=== PATIENT | female | born 1950 | race Caucasian/White ===

== ENCOUNTER 2017-03-09 12:39 | Day surgery (SDC) | payer MEDICARE, BC ==
[~2017-03-09 12:39] MED LIST: Buffered Lidocaine 0.9% SYRIN* 5 ML/SYR SYRINGE INTRADERM ONE; ceFAZolin 2 GM in NS 0.9% 100 ml IVPB ONE
[2017-03-09] MEDS ORDERED: Lidocaine 1% INJ* 10 MG/ML 30 ML SDV ONE ×2 (15:33→17:58)
[2017-03-09] MEDS ORDERED: Midazolam* 1 MG/ML 5 ML VIAL (5 MG) ONE (17:34)
[2017-03-09] MEDS ORDERED: fentaNYL* 50 MCG/ML 2 ML VIAL (100 MCG VIAL) ONE (17:57)
[2017-03-09] MEDS ORDERED: Propofol* 10 MG/ML 20 ML BTL IV PUSH ONE (17:59)
[2017-03-09] MEDS ORDERED: Midazolam* 1 MG/ML 2 ML VIAL (2 MG) ONE (18:27)
[2017-03-09] MEDS ORDERED: Ondansetron INJ* 2 MG/ML VIAL IV PRN (18:31)
[2017-03-09] MEDS ORDERED: oxyCODONE/Acetamin 5/325 MG* TAB PO PRN ×2 (18:31→18:53)
[2017-03-09] MEDS ORDERED: DiMENhydriNATE IV* 50 MG/ML VIAL IV PUSH PRN (18:31)
[2017-03-09] MEDS ORDERED: HYDROmorphone* 1 MG/ML 1 ML SYR IV PRN (18:31)
[2017-03-09] MEDS ORDERED: fentaNYL* 50 MCG/ML 2 ML VIAL (100 MCG VIAL) IV PRN (18:31)
[2017-03-09] MEDS ORDERED: Ibuprofen TAB* 600 MG PO PRN (18:53)
--- NOTE | 2017-03-09 19:16 | RAD ---
INDICATION: Power port placement. COMPARISON: Comparison is made with a prior chest x-ray study from December 18, 2016. TECHNIQUE: 15 seconds of intermittent fluoroscopic guidance were provided and the spot films of the chest were obtained in the operating room. FINDINGS: The films demonstrate placement of a PowerPort central venous catheter entering on the left side. The catheter tip projects over the right atrium. IMPRESSION: INTRAOPERATIVE CONTROL FILMS. CPT II Codes: 6045F
[2017-03-09 19:45] VITALS: BP 153/74
--- NOTE | 2017-03-09 19:48 | RAD ---
INDICATION: Status post central line placement. COMPARISON: Comparison is made with prior chest x-ray study from March 20, 2017. TECHNIQUE: A portable view of the chest was obtained. FINDINGS: Cardiac and mediastinal contours appear to be within normal limits. There is a power port central venous catheter entering on the left side. The catheter tip projects over the region of the superior vena cava. The lungs are underinflated and clear. No pneumothorax or pleural effusion is seen. IMPRESSION: STATUS POST CENTRAL LINE PLACEMENT, NO EVIDENCE FOR ACUTE FINDING.
--- NOTE | 2017-03-11 03:06 | OP ---
CC: Servando Hernandez MD * DATE OF OPERATION: 03/09/17 - [facility] DATE OF : 46 SURGEON: Dr. Patterson. WINDING RACK OPERATOR: None. ANESTHESIOLOGIST: Wes Jacobson MD ANESTHESIA: Local MAC. PRE-OP DIAGNOSIS: Malignant neoplasm of vagina. POST-OP DIAGNOSIS: Malignant neoplasm of vagina. OPERATIVE PROCEDURE: Left internal jugular PowerPort placement. ESTIMATED BLOOD LOSS: Minimal. IV FLUIDS: Crystalloids. SPECIMENS: None. DRAINS: None. COMPLICATIONS: None. COUNTS: The instrument, needle, and sponge counts were correct. DESCRIPTION OF PROCEDURE: The patient was brought to the operating room and placed on the table supine. Sequential compression devices were placed on both lower extremities. Intravenous sedation was administered. She was prepped and draped in the usual sterile fashion and time-out was performed. Local anesthetic was infiltrated for a left subclavian approach. After cannulating the vein, the guidewire was not able to be passed, however. Ultimately, it was decided to proceed with a left internal jugular approach. Ultrasound was utilized to identify the left internal jugular vein and then local anesthetic infiltrated to the skin. The vein was cannulated without difficulty and the guidewire placed into the superior vena cava and its position confirmed under fluoroscopy. Additional anesthetic was then infiltrated for the subcutaneous pocket and for the subcutaneous tunnel. The pocket was created by incising the skin transversely with the scalpel and creating the pocket and subcutaneous tissues of the left upper chest with cautery. A counterincision was made at the guidewire site and then the catheter was back tunneled to the pocket using an 8-Telugu PowerPort catheter. The peel- away sheath and the dilator were advanced to the superior vena cava under fluoroscopic guidance and then the guidewire and dilator were removed and the catheter was advanced, placed in the tip at the cavo-atrial junction. The peel- away sheath was removed. The catheter was then cut to an appropriate length and connected to the PowerPort, which was positioned in the subcutaneous pocket. It was accessed. It santy and flushed easily. The port was secured with a single 2-0 Surgipro suture. The incisions were then closed with 3-0 Polysorb for the subcutaneous tissue and 4-0 Monocryl for the skin in subcuticular fashion. Steri-Strips were applied. The port was accessed with the PowerPort needle. It was drawn and flushed with heparinized saline. The site was dressed with Tegaderm dressings and the tubing from the needle was wrapped with 4x4 and taped. The patient tolerated the procedure well. She was awakened and transferred to the recovery room in stable condition. [id number]/[facility] #: [id number] BO
== END 2017-03-09 19:45 | disposition home or self-care (01) ==
LOC: OR 12:39
PROVIDERS: ATTEND Surgery
DX: C52 Malignant neoplasm of vagina (principal); E78.5 Hyperlipidemia, unspecified; I10 Essential (primary) hypertension; Z87.891 Personal history of nicotine dependence; Z88.5 Allergy status to narcotic agent
CPT/HCPCS: 71010; C1788; J0690; J1642; J2001; J2250; J2704; J3010

== ENCOUNTER 2017-03-18 14:33 | Inpatient (IN) | payer MEDICARE, BC ==
[2017-03-18] MEDS ORDERED: Lidocaine 2% JELLY* 6 ML JELLY TOPICAL PRN (16:11)
[2017-03-18] MEDS ORDERED: Prochlorperazine TAB* 10 MG PO PRN (16:23)
[2017-03-18] MEDS ORDERED: Ondansetron ODT TAB* 4 MG PO PRN (16:23)
[2017-03-18] MEDS ORDERED: Enoxaparin(*) 40 MG/0.4 ML SYR SUBCUT SCH (17:00)
[2017-03-18] MEDS: Acetaminophen TAB* 325 MG PO PRN (17:08)
[2017-03-18] MEDS: Atorvastatin* 10 MG TAB PO SCH (17:09)
[2017-03-18] MEDS: Cefepime(*) 2 GM in NS 0.9% 50 ML* 50 ML IVPB SCH (17:43)
[2017-03-18] MEDS: NS 0.9% 1000 ML* 1,000 ML IV SCH (17:43)
--- NOTE | 2017-03-18 18:23 | RAD ---
HISTORY: Fever COMPARISONS: March 09, 2017 VIEWS: 4: Frontal dual-energy and lateral views of the chest. FINDINGS: CARDIOMEDIASTINAL SILHOUETTE: The cardiomediastinal silhouette is normal. ALEXSANDER: The alexsander are normal. PLEURA: The costophrenic angles are sharp. No pleural abnormalities are noted. LUNG PARENCHYMA: The lungs are clear. ABDOMEN: The upper abdomen is clear. There is no subphrenic gas. BONES AND SOFT TISSUES: No bone or soft tissue abnormalities are noted. OTHER: A left-sided chest port is noted with the tip overlying the cavoatrial junction. IMPRESSION: NO ACTIVE CARDIOPULMONARY DISEASE.
[2017-03-18 20:26] LABS: Urine Bacteria Absent (Absent); Urine Bilirubin Negative (Negative); Urine Glucose Negative (Negative); Urine Nitrite Negative (Negative)
[2017-03-19] MEDS: Cefepime(*) 2 GM in NS 0.9% 50 ML* 50 ML IVPB SCH ×3 (02:38→16:44)
[2017-03-19] MEDS: Acetaminophen TAB* 325 MG PO PRN ×2 (02:45→22:50)
[2017-03-19] MEDS: NS 0.9% 1000 ML* 1,000 ML IV SCH ×2 (02:46→14:14)
[2017-03-19 06:11] LABS: Hematocrit 24 % (35-47); Mean Corpuscular Hemoglobin 28 pg (27-31); Mean Corpuscular Volume 83 fL (80-97); Red Blood Count 2.86 10^6/ul (4.0-5.4); White Blood Count 0.6 10^3/ul (3.5-10.8)
[2017-03-19 06:14] LABS: Add Diff/Slide Review? Slide Review Added; Comments Flag Yes; Mean Corpuscular HGB Conc 34 g/dl (31-36); Mean Platelet Volume 10 um3 (7.4-10.4); Red Cell Distribution Width 14 % (10.5-15)
[2017-03-19 06:16] LABS: Albumin 2.9 g/dL (3.2-5.2); BUN/Creatinine Ratio 17.7 (8-20); Calcium 8.2 mg/dL (8.6-10.3); EGFR African American 122.7 (>60); EGFR Non-African American 95.4 (>60); Globulin 1.9 g/dL (2-4); Potassium 3.5 mmol/L (3.5-5.0); Total Bilirubin 0.4 mg/dL (0.2-1.0); Total Protein 4.8 g/dL (6.4-8.9)
[2017-03-19] MEDS: Docusate CAP* 100 MG PO SCH (08:50)
[2017-03-19] MEDS: BIOTIN 1 MG PO SCH (08:56)
--- NOTE | 2017-03-19 09:12 | PN ---
Progress Note - Progress Note Date of Service: 03/19/17 SOAP: Subjective: []Admitted yesterday for neutropenic fever, was Cycle 1 Day 9 of Doxorubicin and Olaratumab (15mg/kg) - tx. for high grade uterine sarcoma. To note she received Neulasta D2 (via On-pro) and D8 was held d/t neutropenia. Feeling better then yesterday. Only complaint r/t vulvar ulcer, "but its a little less stingy actually." Some drainage, "I think it smells." ROS otherwise benign. Medications: Acetaminophen (Tylenol Tab*) 650 mg PO Q6H PRN PRN Reason: fever or pain Last Admin: 03/19/17 02:45 Dose: 650 mg Atorvastatin Calcium (Lipitor*) 5 mg PO 1700 [facility] PRN Reason: Protocol Last Admin: 03/18/17 17:09 Dose: 5 mg Docusate Sodium (Colace Cap*) 100 mg PO DAILY [facility] Last Admin: 03/19/17 08:50 Dose: 100 mg Enoxaparin Sodium (Lovenox(*)) 40 mg SUBCUT Q24H [facility] Last Admin: 03/18/17 17:09 Dose: Not Given Heparin Sodium (Porcine) (Heparin Flush Port (Ivad)) 5 ml FLUSH DAILY [facility] PRN Reason: Protocol Last Admin: 03/19/17 08:56 Dose: Not Given Cefepime HCl 2 gm/ Sodium (Chloride) 50 mls @ 100 mls/hr IVPB Q8H [facility] Last Admin: 03/19/17 08:50 Dose: 100 mls/hr Sodium Chloride (Ns 0.9% 1000 Ml*) 1,000 mls @ 100 mls/hr IV PER RATE [facility] Last Admin: 03/19/17 02:46 Dose: 100 mls/hr Lidocaine HCl (Lidocaine 2% Jelly*) 1 applic TOPICAL TID PRN PRN Reason: PAIN Non-Formulary Medication (Biotin [Biotin]) 1 mg PO QAM [facility] Last Admin: 03/19/17 08:56 Dose: Not Given Ondansetron HCl (Zofran Odt Tab*) 4 mg PO Q6H PRN PRN Reason: NAUSEA Prochlorperazine (Compazine Tab*) 10 mg PO Q6H PRN PRN Reason: NAUSEA Objective: [] Vital Signs Temp Pulse Resp BP Pulse Ox 98.0 F 68 21 114/42 99 03/19/17 07:59 03/19/17 07:59 03/19/17 07:59 03/19/17 07:59 03/19/17 07:59 A&Ox3, EOMI, SAUCEDA, amb. with steady gait, CN II-XII intact, strenth = bilat. HRR, S1S2 without murmurs LS clear bilat. Port LCW benign +BS, abd. soft and non-tender Vulva with ulceration midline bilat L>R, sm. amt. of erythema and serous exudate Vaginal canal with left wall tumor visualized without full exam, faint foul smell +PP=bilat., no edema noted Laboratory Results - last 24 hr 03/18/17 03/19/17 03/19/17 19:35 05:30 05:50 WBC 0.6 L RBC 2.86 L Hgb 8.0 L Hct 24 L MCV 83 MCH 28 MCHC 34 RDW 14 Plt Count 55 L D MPV 10 Neut % (Auto) 7.6 L Lymph % (Auto) 79.7 H Barry % (Auto) 4.4 Eos % (Auto) 7.3 H Baso % (Auto) 1.0 Absolute Neuts (auto) 0 L Absolute Lymphs (auto) 0.5 L Absolute Monos (auto) 0 Absolute Eos (auto) 0 Absolute Basos (auto) 0 Absolute Nucleated RBC 0 Nucleated RBC % 0.6 Sodium 137 Potassium 3.5 Chloride 108 Carbon Dioxide 26 Anion Gap 3 BUN 11 Creatinine 0.62 Est GFR ( Amer) 122.7 Est GFR (Non-Af Amer) 95.4 BUN/Creatinine Ratio 17.7 Glucose 96 Calcium 8.2 L Total Bilirubin 0.40 AST 16 ALT 18 Alkaline Phosphatase 54 Total Protein 4.8 L Albumin 2.9 L Globulin 1.9 L Albumin/Globulin Ratio 1.5 Urine Color Straw Urine Appearance Clear Urine pH 6.0 Ur Specific [place] 1.003 L Urine Protein Negative Urine Ketones Negative Urine Blood 2+ H Urine Nitrate Negative Urine Bilirubin Negative Urine Urobilinogen Negative Ur Leukocyte Esterase Negative Urine WBC (Auto) Trace(0-5/hpf) Urine RBC (Auto) Trace(0-2/hpf) Ur Squamous Epith Cells Present H Urine Bacteria Absent Urine Glucose Negative Assessment: []67 yo female recently diagnosed with aggressive uterine sarcoma now receiving combination evy-adjuvant Doxorubicin (75 mg/m2)/Olaratumab (15mg/kg) D1D8 q21 admitted with neutropenic fever found to be septic with 3/4 blood cultures positive for gram neg bacilli (see acct. [id number]). Stable to improving since first dose of abx (approx. 15 hrs ago), coverage with Cefepime appropriate at this time. Plan: []1. Sepsis: present on admission, cont. Cefepime until sensitivity available. Possible sources include vulvar ulcer, vaginal tumor, port (though does not appear infected). 2. Pancytopenia: expected with tx., may require dose adjustments but will depend on length of recovery. Cont. reverse isolation. D/C Lovenox, enc. ambulation and SCDs. 3. Vulvar ulcers: try MMW topically QID 4. HTN: anti-hypertensives on hold d/t sepsis, monitor while inpt. and may need adjustment (combination diuretic may not be appropriate with chemo) Disposition: Inpatient for IV abx.
[2017-03-19] MEDS: Miracle MW-Ben/Nyst/Tetrac TOPICAL SCH ×3 (14:15→22:50)
[2017-03-19] MEDS: Atorvastatin* 10 MG TAB PO SCH (16:44)
[2017-03-20] MEDS: Cefepime(*) 2 GM in NS 0.9% 50 ML* 50 ML IVPB SCH (02:34)
[2017-03-20 06:31] LABS: Hematocrit 24 % (35-47); White Blood Count 0.9 10^3/ul (3.5-10.8)
[2017-03-20 06:37] LABS: Add Diff/Slide Review? Slide Review Added; Comments Flag Yes; Hemoglobin 8.3 g/dl (12.0-16.0); Mean Corpuscular HGB Conc 35 g/dl (31-36); Mean Corpuscular Hemoglobin 29 pg (27-31); Mean Corpuscular Volume 83 fL (80-97); Mean Platelet Volume 10 um3 (7.4-10.4); Red Blood Count 2.85 10^6/ul (4.0-5.4); Red Cell Distribution Width 14 % (10.5-15)
[2017-03-20 06:42] LABS: Albumin 2.7 g/dL (3.2-5.2); BUN/Creatinine Ratio 14.3 (8-20); Calcium 8.3 mg/dL (8.6-10.3); EGFR African American 120.5 (>60); EGFR Non-African American 93.7 (>60); Globulin 2.3 g/dL (2-4); Potassium 3.5 mmol/L (3.5-5.0); Total Bilirubin 0.3 mg/dL (0.2-1.0)
[2017-03-20] MEDS ORDERED: Iohexol 350* (CONTRAST) 500 ML MDV IV ONE (08:51)
--- NOTE | 2017-03-20 08:58 | PN ---
Progress Note - Progress Note Date of Service: 03/20/17 SOAP: Subjective: reports a sense of left sided chest heaviness (like I just cant breathe right) starting this am, with a pain in posteriorly to the left when she breathes. no diaphoresis. no cardiac history that she knows of. Objective: Vital Signs Temp Pulse Resp BP Pulse Ox 98.2 F 74 16 105/44 96 03/20/17 02:47 03/20/17 02:47 03/20/17 02:47 03/20/17 02:47 03/20/17 02:47 perr eomi op dry cta bl s1 s2 nl soft nt +Bs no le edema vulva denuded without obvious ulceration, +visible necrotic appearing tumor no le edema A+Ox 3, nonfocal neurological exam port clean, left sided Laboratory Results - last 24 hr 03/19/17 03/19/17 03/20/17 05:50 14:20 05:50 WBC 0.9 L RBC 2.85 L Hgb 8.3 L Hct 24 L MCV 83 MCH 29 MCHC 35 RDW 14 Plt Count 47 L MPV 10 Neut % (Auto) 28.2 L Lymph % (Auto) 61.1 H Ralls % (Auto) 6.3 Eos % (Auto) 3.7 Baso % (Auto) 0.7 Absolute Neuts (auto) 0.3 L Absolute Lymphs (auto) 0.6 L Absolute Monos (auto) 0.1 Absolute Eos (auto) 0 Absolute Basos (auto) 0 Absolute Nucleated RBC 0.01 Nucleated RBC % 0.6 Hem Pathologist Commnt Sodium Potassium Chloride Carbon Dioxide Anion Gap BUN Creatinine Est GFR ( Amer) Est GFR (Non-Af Amer) BUN/Creatinine Ratio Glucose Calcium Total Bilirubin AST ALT Alkaline Phosphatase Total Protein Albumin Globulin Albumin/Globulin Ratio Vitamin B12 > 1450 H 03/20/17 05:50 WBC RBC Hgb Hct MCV MCH MCHC RDW Plt Count MPV Neut % (Auto) Lymph % (Auto) Ralls % (Auto) Eos % (Auto) Baso % (Auto) Absolute Neuts (auto) Absolute Lymphs (auto) Absolute Monos (auto) Absolute Eos (auto) Absolute Basos (auto) Absolute Nucleated RBC Nucleated RBC % Hem Pathologist Commnt Sodium 137 Potassium 3.5 Chloride 108 Carbon Dioxide 26 Anion Gap 3 BUN 9 Creatinine 0.63 Est GFR ( Amer) 120.5 Est GFR (Non-Af Amer) 93.7 BUN/Creatinine Ratio 14.3 Glucose 84 Calcium 8.3 L Total Bilirubin 0.30 AST 14 ALT 18 Alkaline Phosphatase 57 Total Protein 5.0 L Albumin 2.7 L Globulin 2.3 Albumin/Globulin Ratio 1.2 Vitamin B12 Acetaminophen (Tylenol Tab*) 650 mg PO Q6H PRN PRN Reason: fever or pain Last Admin: 03/19/17 22:50 Dose: 650 mg Atorvastatin Calcium (Lipitor*) 5 mg PO 1700 [facility] PRN Reason: Protocol Last Admin: 03/19/17 16:44 Dose: 5 mg Docusate Sodium (Colace Cap*) 100 mg PO DAILY [facility] Last Admin: 03/19/17 08:50 Dose: 100 mg Heparin Sodium (Porcine) (Heparin Flush Port (Ivad)) 5 ml FLUSH DAILY [facility] PRN Reason: Protocol Last Admin: 03/19/17 08:56 Dose: Not Given Cefepime HCl 2 gm/ Sodium (Chloride) 50 mls @ 100 mls/hr IVPB Q8H [facility] Last Admin: 03/20/17 02:34 Dose: 100 mls/hr Sodium Chloride (Ns 0.9% 1000 Ml*) 1,000 mls @ 50 mls/hr IV PER RATE [facility] Last Admin: 03/19/17 14:14 Dose: 50 mls/hr Iohexol (Omnipaque 350 (Contrast)-) 71 ml IV ONCE ONE Stop: 03/20/17 08:52 Lidocaine HCl (Lidocaine 2% Jelly*) 1 applic TOPICAL TID PRN PRN Reason: PAIN Last Admin: 03/19/17 14:16 Dose: 1 applic Multi-Ingredient Mouthwash/Gargle (Miracle Mw-Franco/Nyst/Tetrac*) 5 ml TOPICAL QID [facility] Last Admin: 03/19/17 22:50 Dose: 5 ml Non-Formulary Medication (Biotin [Biotin]) 1 mg PO QAM [facility] Last Admin: 03/19/17 08:56 Dose: Not Given Ondansetron HCl (Zofran Odt Tab*) 4 mg PO Q6H PRN PRN Reason: NAUSEA Potassium Chloride (Klor Con Er Tab*) 40 meq PO DAILY [facility] Stop: 03/25/17 08:59 Prochlorperazine (Compazine Tab*) 10 mg PO Q6H PRN PRN Reason: NAUSEA Assessment: 67 yo F w a high grade uterine sarcoma sp cycle 1 of doxorubicin/olaratumab day 1 03/08 (did receive neulasta) complicated by neutropenic fevers and e coli sepsis. afebrile now on appropriate antibiotics. This am concerningly she has chest pressure and vague pleuritic chest pain. I would like to rule out a cardiac event as well as a PE. -CTA stat -ekg and trops -move to telemetry -if positive will get cardiology consult as appropriate. will hold off on ASA right now as thrombocytopenic vulvar ulceration: appears to be more like mucositis to me but I did swab for herpes cont topical magic mouthwash for pain relief e coli sepsis: clinically improving pansensitive, will change to ceftriaxone
[2017-03-20] MEDS: Potassium Chlor TAB* 20 MEQ TAB.ER PO SCH (10:04)
[2017-03-20] MEDS: Docusate CAP* 100 MG PO SCH (10:04)
[2017-03-20] MEDS ORDERED: Alteplase (CATHFLO)* 2 MG VIAL IV ONE ×2 (12:00→13:19)
[2017-03-20] MEDS: Miracle MW-Ben/Nyst/Tetrac TOPICAL SCH ×3 (13:23→20:42)
[2017-03-20] MEDS: BIOTIN 1 MG PO SCH (13:24)
[2017-03-20] MEDS: Atorvastatin* 10 MG TAB PO SCH (16:33)
[2017-03-20] MEDS: NS 0.9% 1000 ML* 1,000 ML IV SCH (16:34)
--- NOTE | 2017-03-20 20:31 | RAD ---
HISTORY: Pleuritic chest pain, shortness of breath COMPARISONS: None TECHNIQUE: Multiple contiguous axial CT scans of the chest were obtained after the administration of nonionic intravenous contrast, timed to the pulmonary arterial phase of contrast enhancement.. Coronal and sagittal multiplanar reformations are also submitted for review. FINDINGS: NECK AND THYROID: The lower neck and thyroid are unremarkable. CHEST WALL: There is no lower cervical, axillary, or supraclavicular lymphadenopathy by size criteria. A left-sided pacemaker is noted. HEART AND PERICARDIUM: The heart is unremarkable. AORTA AND PULMONARY VASCULATURE: There is no pulmonary arterial filling defect to suggest pulmonary embolism. There is no linear filling defect within the aorta to suggest aortic dissection. MEDIASTINUM: There is no mediastinal lymphadenopathy by size criteria. ALEXSANDER: There is no hilar lymphadenopathy by size criteria. AIRWAY AND ESOPHAGUS: The airway is unremarkable, without endobronchial filling defect. The esophagus is grossly normal. LUNG PARENCHYMA: The lungs are clear. PLEURA: There are small bilateral pleural effusions. UPPER ABDOMEN: The upper abdomen is unremarkable. BONES AND SOFT TISSUES: No bone or soft tissue abnormalities are noted. OTHER: None. IMPRESSION: 1. NO PULMONARY ARTERIAL FILLING DEFECT TO SUGGEST PULMONARY EMBOLISM. 2. SMALL BILATERAL PLEURAL EFFUSIONS.
[2017-03-21 05:33] LABS: Hematocrit 24 % (35-47); Mean Corpuscular HGB Conc 34 g/dl (31-36); Mean Corpuscular Hemoglobin 28 pg (27-31); Mean Corpuscular Volume 83 fL (80-97); Mean Platelet Volume 10 um3 (7.4-10.4); Red Blood Count 2.87 10^6/ul (4.0-5.4); Red Cell Distribution Width 14 % (10.5-15)
[2017-03-21 05:34] LABS: Comments Flag Yes
[2017-03-21 05:35] LABS: Add Diff/Slide Review? Slide Review Added; White Blood Count 1.8 10^3/ul (3.5-10.8)
[2017-03-21 05:47] LABS: Albumin 3.1 g/dL (3.2-5.2); BUN/Creatinine Ratio 9.8 (8-20); Calcium 8.4 mg/dL (8.6-10.3); EGFR African American 125.1 (>60); EGFR Non-African American 97.2 (>60); Globulin 1.9 g/dL (2-4); Potassium 3.6 mmol/L (3.5-5.0); Total Bilirubin 0.2 mg/dL (0.2-1.0)
[2017-03-21] MEDS: Potassium Chlor TAB* 20 MEQ TAB.ER PO SCH (09:09)
[2017-03-21] MEDS: Docusate CAP* 100 MG PO SCH (09:09)
[2017-03-21] MEDS: Miracle MW-Ben/Nyst/Tetrac TOPICAL SCH ×4 (09:11→20:28)
[2017-03-21] MEDS: BIOTIN 1 MG PO SCH (09:21)
[2017-03-21] MEDS: Atorvastatin* 10 MG TAB PO SCH (17:19)
--- NOTE | 2017-03-21 17:24 | PN ---
Subjective Date of Service: 03/21/17 Interval History: HOSPITALIST PROGRESS NOTE Patient seen and examined at bedside. She feels better today, in good spirits. Her breathing is improved and has only some dry cough. Family History: Unchanged from Admission Social History: Unchanged from Admission Past Medical History: Unchanged from Admission Objective Active Medications: Acetaminophen (Tylenol Tab*) 650 mg PO Q6H PRN PRN Reason: fever or pain Last Admin: 03/19/17 22:50 Dose: 650 mg Atorvastatin Calcium (Lipitor*) 5 mg PO 1700 [facility] PRN Reason: Protocol Last Admin: 03/20/17 16:33 Dose: 5 mg Docusate Sodium (Colace Cap*) 100 mg PO DAILY [facility] Last Admin: 03/21/17 09:09 Dose: 100 mg Heparin Sodium (Porcine) (Heparin Flush Port (Ivad)) 5 ml FLUSH DAILY [facility] PRN Reason: Protocol Last Admin: 03/21/17 09:08 Dose: Not Given Ceftriaxone Sodium 2 gm/ (Sodium Chloride) 100 mls @ 200 mls/hr IVPB 1500 [facility] Last Admin: 03/21/17 15:03 Dose: 200 mls/hr Lidocaine HCl (Lidocaine 2% Jelly*) 1 applic TOPICAL TID PRN PRN Reason: PAIN Last Admin: 03/19/17 14:16 Dose: 1 applic Multi-Ingredient Mouthwash/Gargle (Miracle Mw-Franco/Nyst/Tetrac*) 5 ml TOPICAL QID [facility] Last Admin: 03/21/17 13:09 Dose: 5 ml Non-Formulary Medication (Biotin [Biotin]) 1 mg PO QAM [facility] Last Admin: 03/21/17 09:21 Dose: Not Given Ondansetron HCl (Zofran Odt Tab*) 4 mg PO Q6H PRN PRN Reason: NAUSEA Potassium Chloride (Klor Con Er Tab*) 40 meq PO DAILY [facility] Stop: 03/25/17 08:59 Last Admin: 03/21/17 09:09 Dose: 40 meq Prochlorperazine (Compazine Tab*) 10 mg PO Q6H PRN PRN Reason: NAUSEA Vital Signs 03/21/17 03/21/17 12:00 16:07 Temperature 97.9 F 97.0 F Pulse Rate 67 71 Respiratory 16 18 Rate Blood Pressure 126/56 127/54 (mmHg) O2 Sat by Pulse 100 98 Oximetry Oxygen Devices in Use Now: None Appearance: Pleasant lady sitting up in bed in NAD. Eyes: No Scleral Icterus Ears/Nose/Mouth/Throat: Mucous Membranes Moist Neck: Trachea Midline Respiratory: Symmetrical Chest Expansion and Respiratory Effort, - - BS+ bilaterally with scattered rales both bases Cardiovascular: RRR - Normal S1 and S2 Neurological: Alert and Oriented x 3, NL Muscle Strength and Tone Lines/Tubes/Other Access: Clean, Dry and Intact Peripheral IV Nutrition: Taking PO's Result Diagrams: 03/21/17 05:20 03/21/17 05:20 Assess/Plan/Problems-Billing Assessment: Mrs. Ayala is a 67yo F with PMH of HTN, HLD, uterine sarcoma invading vaginal wall receiving chemotherapy, admitted with neutropenic fever, found to have E. coli septicemia. - Patient Problems (1) E. coli septicemia Comment: - Initial blood culture grew pansensitive E. coli. Repeat blood cultures show no growth so far. - Continue Ceftriaxone. (2) Neutropenic fever Comment: - WBC up to 1.8, with ANC 0.7. (3) Chest pain Comment: - Resolved. - CTA chest was negative for PE, showed only small pleural effusions. - EKG showed no ischemic changes and serial troponins were negative. (4) Mucositis (ulcerative) due to antineoplastic therapy Comment: - Continue Magic mouth wash. (5) DVT prophylaxis Comment: - SCDs only due to thrombocytopenia. (6) Full code status Status and Disposition: Inpatient requiring >48h for stabilization.
[2017-03-21] MEDS: Folic Acid TAB* 1 MG PO SCH (18:18)
[2017-03-21] MEDS: Magic Mouth Was-BEN/MAAL/LIDO SWISH SPIT SCH ×2 (18:18→20:28)
[2017-03-22] MEDS: Acetaminophen TAB* 325 MG PO PRN (00:41)
[2017-03-22 06:29] LABS: Hematocrit 24 % (35-47); Hemoglobin 8.2 g/dl (12.0-16.0); Mean Corpuscular HGB Conc 34 g/dl (31-36); Mean Corpuscular Hemoglobin 28 pg (27-31); Mean Corpuscular Volume 83 fL (80-97); Mean Platelet Volume 10 um3 (7.4-10.4); Red Blood Count 2.94 10^6/ul (4.0-5.4); Red Cell Distribution Width 15 % (10.5-15)
[2017-03-22 06:37] LABS: BUN/Creatinine Ratio 12.3 (8-20); Calcium 8.8 mg/dL (8.6-10.3); EGFR African American 116.2 (>60); EGFR Non-African American 90.4 (>60); Globulin 2.1 g/dL (2-4); Total Bilirubin 0.2 mg/dL (0.2-1.0); Total Protein 5.1 g/dL (6.4-8.9)
[2017-03-22 06:39] LABS: Comments Flag Yes
[2017-03-22 06:40] LABS: Add Diff/Slide Review? Slide Review Added; White Blood Count 2.3 10^3/ul (3.5-10.8)
[2017-03-22] MEDS: Docusate CAP* 100 MG PO SCH (07:25)
[2017-03-22] MEDS: Folic Acid TAB* 1 MG PO SCH (07:26)
[2017-03-22] MEDS: Potassium Chlor TAB* 20 MEQ TAB.ER PO SCH (07:26)
[2017-03-22] MEDS: BIOTIN 1 MG PO SCH (07:27)
[2017-03-22] MEDS: Miracle MW-Ben/Nyst/Tetrac TOPICAL SCH ×2 (07:27→13:41)
[2017-03-22] MEDS: Magic Mouth Was-BEN/MAAL/LIDO SWISH SPIT SCH ×2 (07:28→13:41)
[2017-03-22 11:56] VITALS: BP 131/61
--- NOTE | 2017-03-22 12:34 | CONS ---
DATE OF CONSULTATION: 03/22/2017. REQUESTING PHYSICIAN: Dr. Norris. CONSULTING SERVICE: Infectious Disease. REASON FOR CONSULTATION: E. coli bacteremia. IMPRESSION: 1. Admitted with neutropenic fever after chemotherapy. Found to have E. coli in three of four blood culture bottles. She has a sarcomatoid malignancy of the vagina and uterus. Apparently had some ulceration adjacent to the tumor with irritation where she has grown E. coli in the past. This was a possible source. She had no other focal signs or symptoms to suggest another. She was not profoundly neutropenic, so typhlitis seems a little bit less likely. She has a port present, so that could have been seeded. Her blood cultures cleared rapidly with the antibiotics. 2. 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 RECOMMENDATIONS: Continue Ceftriaxone 2 gm daily for 14 more days through the port to try to sterilize the port if there has been seeding of it. I think that is safe given rapid clearance of cultures, pansensitive E. coli. She will have a weekly CBC, CMP, and CRP while she is on IV antibiotics. We discussed the side effects, including fever, rash or diarrhea due to multiple causes. She will call me if any of those appear. HISTORY OF PRESENT ILLNESS: This is a 67-year-old woman with a vaginal and uterine poorly-differentiated sarcomatoid malignancy. She has recently started neoadjuvant chemotherapy. She was found to have a neutrophil count of zero a week after her chemotherapy. Subsequently, she had some irritation in the vaginal adjacent to the tumor with some pain. She had developed low grade fevers, chills, and nausea. She was seen in the outpatient Oncology office. She had blood cultures taken which came back 3 with E. coli. She had been hospitalized by then. Her white count was 0.6 on admission. ANC was 0. Temperature was 38 degrees. She was started on Ceftriaxone. Her chest x-ray on the showed no active disease. She was doing well. Her fever resolved. Blood cultures were rechecked and they were negative. Yesterday she had some atypical chest pain, so a CT scan was obtained that showed no pulmonary embolism , there are small bilateral pleural effusions. She is continued on Ceftriaxone. Her chest pain has resolved. She is anxious to go home. She has been eating and feels well. PAST MEDICAL HISTORY: 1. 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 2. Hyperlipidemia. 3. Hypertension. 4. Status post appendectomy. 5. Right chest port. MEDICATIONS: Tylenol, Lipitor, Docusate, Ceftriaxone 2 gm daily. ALLERGIES: ADHESIVE TAPE, HYDROCODONE. FAMILY HISTORY: No recurrent infections. SOCIAL HISTORY: She lives in [place] with her . She has no travel or sick contacts. REVIEW OF SYSTEMS: All negative, except as noted above. PHYSICAL EXAM: General: She is awake, not in distress. Vital Signs: Temperature 36.7, heart rate 70, respiratory rate 16, blood pressure 130/80, O2 sat 98 percent on room air. HEENT: There is no conjunctival hemorrhage. Oropharynx without lesions. Neck: Supple without nuchal rigidity. Lymph Nodes : There is no inguinal, axillary, or epitrochlear lymphadenopathy. Heart: Regular rate and rhythm without murmurs, rubs or gallops. Lungs: Clear to auscultation bilaterally. Abdomen: Soft, nontender, nondistended. There are bowel sounds present. Chest: There is a right chest port present without erythema around it. Skin: There are no rashes or splinter hemorrhages. Musculoskeletal: There is no spine tenderness to palpation or joint synovitis. Neurologic: She is oriented times three, follows all commands, and moves all her extremities. LAB DATA: White blood cell count 2.3, hemoglobin 8.2, platelets 93. ANC is 1100. Please see impression and recommendations outlined above which I have discussed with Dr. Norris. Thank you for asking me to see Ms. Ayala in consultation. [id number]/[facility] #: [id number] [facility]
[2017-03-23 01:47] LABS: HS/VZ Source VAGINAL; Varicella Zoster Result Negative (Negative); Varicella Zoster Source VAGINAL
== END 2017-03-22 16:02 | disposition home or self-care (01) | DRG 872 ==
LOC: MED 16:11 → MEDTELE 03-20 08:50
PROVIDERS: ADMIT Internal Medicine Hematology & Oncology; ATTEND Internal Medicine Hematology & Oncology
DX: A41.51 Sepsis due to Escherichia coli [E. coli] (principal); D70.9 Neutropenia, unspecified; C78.00 Secondary malignant neoplasm of unspecified lung; C55 Malignant neoplasm of uterus, part unspecified; N76.81 Mucositis (ulcerative) of vagina and vulva; C52 Malignant neoplasm of vagina; R50.81 Fever presenting with conditions classified elsewhere; R07.9 Chest pain, unspecified; I10 Essential (primary) hypertension; E78.5 Hyperlipidemia, unspecified; Z88.5 Allergy status to narcotic agent; Z79.1 Long term (current) use of non-steroidal anti-inflammatories (NSAID); Z79.899 Other long term (current) drug therapy; Z80.41 Family history of malignant neoplasm of ovary
CPT/HCPCS: 36415; 36591; 71020; 71275; 80053; 81003; 81015; 82607; 83735; 84100; 84484; 85025; 85060; 87040; 87077; 87186; 87205; 87529; 87798; 93005; 99223; 99232; 99233; 99239; A9270-GY; J0692; J0696; J1642; J1650; J2405; J2997; Q9967

== ENCOUNTER 2019-06-10 14:30 | Emergency (ER) | payer MEDICARE, BC ==
[2019-06-10 16:22] VITALS: BP 143/70
--- NOTE | 2019-06-10 16:37 | UC ---
Back Pain HPI - HPI Summary HPI Summary: low back pain both sides of spine-began about 1 week ago after lifting a pool cover--no pain radiating down legs---no bowel /bladder concerns no urinary c/o - History of Current Complaint Chief Complaint: UCBackPain Stated Complaint: BACK INJURY Time Seen by Provider: 06/10/19 16:30 Hx Obtained From: Patient Hx Last Menstrual Period: post menopause ?: No Onset/Duration: Sudden Onset, Lasting Weeks - 1 Timing: Constant Pain Intensity: 8 Pain Scale Used: 0-10 Numeric Back Pain: Is Discrete @ Character: Spasmodic, Stiffness Aggravating Factor(s): Movement, Bending Alleviating Factor(s): Nothing Associated Signs And Symptoms: Negative: Weakness, Numbness, Flank Pain, Bladder Incontinence, Bowel Incontinence, Pain with Weight Bearing - Allergies/Home Medications Allergies/Adverse Reactions: Allergies Allergy/AdvReac Type Severity Reaction Status Date / Time hydrocodone Allergy Vomiting Verified 06/10/19 16:23 Adhesive Tape AdvReac See Comment Verified 12/06/17 12:27 Home Medications: Home Medications Carvedilol [Coreg] 12.5 mg PO 06/10/19 [History] Losartan TAB* [Cozaar TAB*] 50 mg 06/10/19 [History] Pravastatin (NF) [Pravachol (NF)] 20 mg PO 1700 06/10/19 [History Confirmed ] Sertraline* [Zoloft*] 50 mg 06/10/19 [History] PMH/Surg Hx/FS Hx/Imm Hx Previously Healthy: No Cardiovascular History: Hypertension Psychological History: Depression Cancer History: Other Other Cancer History: uterine sarcoma - Surgical History Surgical History: Yes Surgery Procedure, Year, and Place: right wrist ganglia surgery 2002. apendectomy 1982. [facility] - Family History Known Family History: Positive: None - Social History Occupation: Retired Lives: With Family Alcohol Use: None Alcohol Amount: 1-2 glasses wine a week Substance Use Type: None Smoking Status (MU): Former Smoker Amount Used/How Often: smoked on/off for approx 7 yrs, 1 ppd at most When Did the Patient Quit Smoking/Using Tobacco: 1972 - Immunization History Most Recent Influenza Vaccination: unknown Most Recent Pneumonia Vaccination: with in last 5 years Review of Systems All Other Systems Reviewed And Are Negative: Yes Constitutional: Positive: Negative Skin: Positive: Negative Eyes: Positive: Negative ENT: Positive: Negative Respiratory: Positive: Negative Cardiovascular: Positive: Negative Gastrointestinal: Positive: Negative Genitourinary: Positive: Negative Motor: Positive: Negative Neurovascular: Positive: Negative Musculoskeletal: Positive: Arthralgia - lumbar spine, Myalgia - both sides of lower back Neurological: Positive: Negative Psychological: Positive: Negative Is Patient Immunocompromised?: No Physical Exam Triage Information Reviewed: Yes Appearance: Well-Appearing, Well-Nourished, Pain Distress Vital Signs: Initial Vital Signs Temp 97.8 F 06/10/19 16:15 Pulse 62 06/10/19 16:15 Resp 16 06/10/19 16:15 BP 143/70 06/10/19 16:15 Pulse Ox 100 06/10/19 16:15 Vital Signs Reviewed: Yes Eye Exam: Normal Eyes: Positive: Conjunctiva Clear ENT Exam: Normal ENT: Positive: Normal ENT inspection, Hearing grossly normal, Pharynx normal. Negative: Trismus, Muffled voice, Hoarse voice Dental Exam: Normal Neck exam: Normal Neck: Positive: Supple, Nontender, No Lymphadenopathy Respiratory Exam: Normal Respiratory: Positive: Chest non-tender, No respiratory distress, No accessory muscle use Cardiovascular Exam: Normal Cardiovascular: Positive: RRR, Pulses Normal, Brisk Capillary Refill Abdomen Description: Negative: CVA Tenderness (R), CVA Tenderness (L) Bowel Sounds: Positive: Present Musculoskeletal Exam: Normal Musculoskeletal: Positive: Strength Intact, ROM Intact, No Edema Neurological Exam: Normal Neurological: Positive: Alert, Muscle Tone Normal Psychological Exam: Normal Skin Exam: Normal Diagnostics - Radiology No standard instances Radiology Interpretation Completed By: ED Physician - no acute changes evidence of fracture Back Pain Course/Dx - Course Course Of Treatment: warm compress, Tylenol, ultram, gentle exercise, follow with pcp this week - Differential Dx/Diagnosis Provider Diagnosis: Spasm of lumbar paraspinous muscle Discharge ED - Sign-Out/Discharge Documenting (check all that apply): Patient Departure All imaging exams completed and their final reports reviewed: Yes - Discharge Plan Condition: Stable Disposition: HOME Prescriptions: Cyclobenzaprine TAB* [Flexeril 10 MG TAB*] 10 mg PO TID PRN #10 tab PRN Reason: muscle spasm traMADol TAB* [Ultram*] 50 mg PO Q8H PRN #10 tab MDD 3 PRN Reason: pain Patient Education Materials: Low Back Strain (ED), Hypertension (ED), Muscle Spasm (ED), Lower Back Exercises (ED) Referrals: Aiden Lu MD [Primary Care Provider] - 3 Days - Billing Disposition and Condition Condition: STABLE Disposition: Home
[2019-06-10] MEDS ORDERED: Cyclobenzaprine TAB* 10 MG PO ONE (17:28)
[2019-06-10] MEDS ORDERED: traMADol TAB* 50 MG PO ONE (17:29)
== END 2019-06-10 17:46 | disposition home or self-care (01) ==
LOC: UCEAST 14:30
DX: M62.830 Muscle spasm of back (principal); Z88.5 Allergy status to narcotic agent; Z91.09 Other allergy status, other than to drugs and biological substances; I10 Essential (primary) hypertension; Z79.899 Other long term (current) drug therapy; Z85.42 Personal history of malignant neoplasm of other parts of uterus; F17.210 Nicotine dependence, cigarettes, uncomplicated
CPT/HCPCS: 72110; 99213; A9270-GY; G0463

== ENCOUNTER 2019-10-05 17:54 | Emergency (ER) | payer BC, MEDICARE ==
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
[2019-10-05 18:45] LABS: ABS Eosinophils 0.1 10^3/ul (0-0.6); ABS Lymphocytes 0.8 10^3/ul (1.0-4.8); ABS Monocytes 0.4 10^3/ul (0-0.8); ABS Neutrophils 4.9 10^3/ul (1.5-7.7); Eosinophil % 1.8 %; Hematocrit 38 % (35-47); Lymphocyte % 12.2 %; Mean Corpuscular HGB Conc 34 g/dL (31-36); Mean Corpuscular Hemoglobin 30 pg (27-31); Mean Corpuscular Volume 89 fL (80-97); Mean Platelet Volume 8.9 fL (7.4-10.4); Platelet Count 136 10^3/uL (150-450); Red Blood Count 4.31 10^6 /uL (3.70-4.87); Red Cell Distribution Width 14 % (10-15); White Blood Count 6.2 10^3/uL (3.5-10.8)
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
[2019-10-05 19:14] LABS: Albumin 4.2 g/dL (3.2-5.2); Albumin/Globulin Ratio 1.8 (1-3); BUN/Creatinine Ratio 30.6 (8-20); Calcium 9.6 mg/dL (8.6-10.3); EGFR African American 79.8 (>60); EGFR Non-African American 65.9 (>60); Globulin 2.4 g/dL (2-4); Total Bilirubin 0.5 mg/dL (0.2-1.0); Total Protein 6.6 g/dL (6.4-8.9)
[2019-10-05] MEDS ORDERED: Iodixanol* (CONTRAST) 320 MG/ML 100 ML SDV IV ONE (19:46)
[2019-10-05] MEDS ORDERED: Acetaminophen TAB* 325 MG PO ONE (22:40)
[2019-10-05 22:46] VITALS: BP 0/0
== END 2019-10-05 22:45 | disposition home or self-care (01) ==
LOC: ED 17:54
DX: S16.1XXA Strain of muscle, fascia and tendon at neck level, initial encounter (principal); V48.3XXA Unspecified car occupant injured in noncollision transport accident in nontraffic accident, initial encounter; Y92.9 Unspecified place or not applicable; I10 Essential (primary) hypertension; Z88.6 Allergy status to analgesic agent; Z87.891 Personal history of nicotine dependence; Z85.44 Personal history of malignant neoplasm of other female genital organs
CPT/HCPCS: 36415; 70450; 71260; 72125; 74177; 80053; 83690; 85025; 99283; A9270-GY; Q9967